=== PATIENT | male | born 1960 | race Caucasian/White ===

== ENCOUNTER 2017-02-02 06:36 | Day surgery (SDC) | payer OTHER ==
[~2017-02-02] VITALS: Ht 188 cm; Wt 134.0 kg
[~2017-02-02 06:36] MED LIST: ALBU6.7H INH; COUM5TAB PO; GABA400 PO; LISI40TA PO; OXYC5 PO; ROPI.5 PO; TAB-TAB PO
[2017-02-02] MEDS ORDERED: IOHEXOL 350 MG/ML 100 ML BTL (for Cath Lab) OTHER ONE (06:37)
[2017-02-02] MEDS ORDERED: NS 1000P @30 MLS/HR (KVO) IV SCH (07:30)
[2017-02-02 07:48] VITALS: BP 158/88; PULSE 59; RESP 18; TEMP 97.5; O2SAT 96
[2017-02-02] MEDS ORDERED: COUM5TAB PO (07:51)
[2017-02-02] MEDS ORDERED: TAMS5CAP PO (07:51)
[2017-02-02] MEDS ORDERED: FERR325T8 PO (07:51)
[2017-02-02] MEDS ORDERED: FENT25DI T-DERMAL (07:51)
[2017-02-02] MEDS ORDERED: OXYC30TA PO (07:51)
[2017-02-02] MEDS ORDERED: LEXA20TA PO (07:51)
[2017-02-02 08:09] LABS: AUTOMATED NEUTROPHIL # 2.2 TH/MM3 (1.8-7.7); BASOPHIL # 0.1 TH/MM3 (0-0.2); BASOPHIL % 1.2 % (0.0-2.0); EOSINOPHIL # 0.2 TH/MM3 (0-0.4); EOSINOPHIL % 3.9 % (0.0-4.0); HEMATOCRIT 41.5 % (39.0-51.0); HEMO FLAGS DIFF FINAL; LYMPH % 34.4 % (9.0-44.0); LYMPHOCYTE # 1.5 TH/MM3 (1.0-4.8); MEAN CELL VOLUME 91.2 FL (80.0-100.0); MEAN CORPUSCULAR HEMOGLOBIN 30.2 PG (27.0-34.0); MEAN CORPUSCULAR HGB CONC 33.1 % (32.0-36.0); MONO % 9.5 % (0.0-8.0); PLATELET COUNT 112 TH/MM3 (150-450); RED BLOOD COUNT 4.55 MIL/MM3 (4.50-5.90); RED CELL DISTRIBUTION WIDTH 15.7 % (11.6-17.2); WHITE BLOOD COUNT 4.3 TH/MM3 (4.0-11.0)
[2017-02-02 08:17] LABS: APTT (PATIENT) 27.3 SEC (24.3-30.1); INTERNATIONAL NORMALIZED RATIO 1.1 RATIO
[2017-02-02] MEDS ORDERED: HEPARIN-NS/PF INJ 1,000 ML ONE (08:26)
[2017-02-02] MEDS ORDERED: SODIUM CHLORID 0.9% 500 ML INJ 500 ML ONE (08:27)
[2017-02-02] MEDS ORDERED: MIDAZOLAM HCL 2 MG/2 ML VIAL ONE ×2 (08:27→09:02)
[2017-02-02] MEDS ORDERED: HEPARIN SODIUM - IV 10,000 UNITS/10 ML VIAL ONE (08:33)
[2017-02-02] MEDS ORDERED: PHENYLEPHRINE HCL 10 MG/ML VIAL ONE (08:34)
[2017-02-02] MEDS ORDERED: NITROGLYCERIN INJ 5 ML ONE (08:34)
[2017-02-02] MEDS ORDERED: VERAPAMIL HCL 5 MG/2 ML VIAL ONE (08:38)
--- NOTE | 2017-02-02 09:36 | CATHPROC ---
Audacious HIS Report Study Information Study Number Admission Scheduled Start Study Start [id number] Feb 02 2017 6:36AM 02/02/2017 Feb 02 2017 7:55AM Topping Service Cardiac Catheterization Admit Source Facility Department Other [facility] - Manager Educational Physician and Clinical Staff Initial Pranav Trejo Dye OperatorMikhail Blair RN Dye Operator Mariella Anderson,THOMAS Recorder Shayy Krishnan,MOLDING AND TRIM INSTALLER TECH2 Scrub Thao Mccrary,RT(R) Procedures Performed Procedure Location (Site) Vessel Name Coronary Angiograms LCA Left Coronary Coronary Angiograms RCA Right Coronary Equipment Time Nuts And Bolts Assembler Description Size Mfg Part Number Used/Scraped TRANSDUCER, TRUWAVE [id number] 07:57 SANDY DE [place] * Used W/STOCKCOCK *[id number] [id number] *[id number] [id number] *[id number] [id number] *[id number] 07:57 Fondu PACK, CCL CUSTOM * Used *[id number] 07:57 Fondu SUPPORT, ARTERIAL ADULT [id number] *[id number] Used 08:55 MEDTRONIC JR 4.0 DXTERITY CATHETER FR 5 [id number] Used BAND, RADIAL COMPRESSION TR [id number] 09:21 [employer] MEDICAL 29CM Used LARGE 29 *[id number] 07:57 [employer] MEDICAL WIRE, EXCHANGE 260CM 3MMJ 260CM Used *[id number] 07:57 NAMIC MANIFOLD, 4 PORT * Used *[id number] 07:57 NYCOMED OMNIPAQUE, 350 MG, 150ML 150ML [id number] Used [id number] 07:57 RIVERA MEDICAL BLANKET,WARM AIR CCL * Used *[id number] SHEATH, FR6 TRANSRADIAL [id number] 07:57 Yapmo FR 6 Used SLENDER 10CM *[id number] History: Current Medications Medication Dosage/Unit Route Frequency Last Date/Time Taken Coumadin LEXAPRO FLOMAX History: Allergies Allergy Reaction morphine Shortness of Breath History: Risk Factors Family History of Hypertension Previous RI Previous Heart Failure Premature CAD Yes Yes No No Prior Valve Prior PCI Prior CABG Surgery No No No Cerebrovascular Peripheral Artery Chronic Lung On Dialysis Diabetes Disease Disease Disease No Yes Yes Yes No History: Symptoms/Diagnosis Selection Items Chest pain SOB History: Stress Tests Stress or Imaging Studies Performed Yes Standard Exercise Stress Test No Stress Echo No Stress Test SPECT Stress Test SPECT Result Stress Test SPECT Ischemia Risk/Extent Yes Positive High Stress Test CMR No Cardiac CTA Coronary Calcium Score No No History: Other Disease Selection Items Hepatitis History: Other Current Smoker Method Packs a Day Years Used Pack Years Yes Cigarettes 1 20 20 Labs Hgb (g/dl) Hct (%) RBC (MIL/MM3) WBC (l/cumm) Platelets (thousands) 11.60-17.00 35.00-51.00 4.00-5.90 4.00-11.00 150.00-450.00 13.7 41.5 4.5 4.3 112 Glucose (mg/dl) BUN (mg/dl) Creatinine (mg/dl) BUN:Creatinine (1:x) 74.00-106.00 7.00-18.00 0.50-1.30 10.00-20.00 91 10 0.7 14.3 Na (meq/l) K (meq/l) Cl (meq/l) CO2 (mmol/L) Ca (mg/dl) 136.00-145.00 3.50-5.10 98.00-107.00 21.00-32.00 8.50-10.10 141 4 106 31 8.2 PT (sec) PTT (sec) INR (PTT:PT) 9.80-11.60 24.30-30.10 0.90-1.10 12 27.3 1.1 CPK-MB (ng/ML) 0.50-3.60 Not Drawn Medication Medication Total Dose (Bolus/Oral) Medication Total Dosage/Unit 1% XYLOCAINE 20 mL FENTANYL 100 mcg RADIAL COCKTAIL 5 mL (Bolus) VERSED 2 mg Medications (Bolus/Oral) Medication Time Given Dosage/Unit Administered By Reason VERSED 02/02/2017 8:40:58 AM 0.5 mg Mikhail Tenorio 0.5 mg VERSED given in lab by Mikhail Tenorio RN in Right Antecubital via Peripheral IV. Ordered by Pranav Perez. FENTANYL 02/02/2017 8:41:21 AM 25 mcg Mikhail Tenorio 25 mcg FENTANYL given in lab by Mikhail Tenorio, THOMAS in Right Antecubital via Peripheral IV. Ordered by Pranav Espinal. VERSED 02/02/2017 8:47:34 AM 0.5 mg Ferlitto, Mikhail 0.5 mg VERSED given in lab by Mikhail Tenorio RN in Right Antecubital via Peripheral IV. Ordered by Pranav Perez. 1% XYLOCAINE 02/02/2017 8:48:07 AM 20 mL Pranav Espinal 20 mL 1% XYLOCAINE given in lab by Pranav Espinal in Right Radial via Subcutaneous. Ordered by Pet Pranav camacho. FENTANYL 02/02/2017 8:48:12 AM 25 mcg Mikhail Tenorio 25 mcg FENTANYL given in lab by Mikhail Tenorio RN in Right Antecubital via Peripheral IV. Ordered by Pranav Espinal. RADIAL COCKTAIL 02/02/2017 8:53:02 AM 5 mL (Bolus) Pranav Espinal 5 mL (Bolus) RADIAL COCKTAIL given in lab by Pranav Espinal in Right Radial via Radial. Using [Iman ution Name]. Ordered by Pranav Espinal. Heparin 5600 U, 2.5mg Verapamil, 200mcg NTG VERSED 02/02/2017 9:02:35 AM 0.5 mg Mikhail Tenorio 0.5 mg VERSED given in lab by Mikhail Tenorio RN in Right Antecubital via Peripheral IV. Ordered by Pranav Perez. FENTANYL 02/02/2017 9:13:13 AM 50 mcg Mikhail Tenorio 50 mcg FENTANYL given in lab by Mikhail Tenorio RN in Right Antecubital via Peripheral IV. Ordered by Pranav Espinal. VERSED 02/02/2017 9:14:53 AM 0.5 mg Mikhail Tenorio 0.5 mg VERSED given in lab by Mikhail Tenorio RN in Right Antecubital via Peripheral IV. Ordered by Pranav Perez. Medication (Drip) Medication Time Given Dosage/Unit Concentration/Unit Diluent (ml) Solutio n IV Solutions 02/02/2017 8:22:35 AM 0 mL (IV) 500 NaCl .9 Patient arrived on IV Solutions in Right Antecubital via Peripheral IV. Pump/Drip Flow = 20 ml/hr usi ng NaCl .9. Initial Case Assessment Cardiovascular HR Rhythm NIBP Chest Pain 60 sr 140/84 0 Circulatory - Right Pulses Dorsalis Pedis Femoral Radial 2 2 3 Scale (0,1,2,3,4,d) Scale (0,1,2,3,4,d) Neurological State Oriented to time-place- Alert Moves all extremities person Respiration - General Respiration Rate SpO2 (%) (B/min) 12 96 Final Case Assessment Cardiovascular HR Rhythm NIBP Chest Pain 63 sr 139/74 0 Circulatory - Right Pulses Dorsalis Pedis Femoral Radial 2 2 3 Scale (0,1,2,3,4,d) Scale (0,1,2,3,4,d) Neurological State Oriented to time-place- Alert Moves all extremities person Respiration - General Respiration Rate SpO2 (%) (B/min) 13 95 Chronological Log Time Study Chronological Log 8:22:06 Patient arrived via Bed. 8:22:07 Patient Name, D.O.B, / Armband Verified By R.N. 8:22:08 Consent signed by the physician and the patient and verified by the Manager Educational staff. 8:22:09 Pre-op and post- op instructions given; patient acknowledges understanding of instructions. 8:22:10 Verbal Stimulation=2 Physical Stimulation=2 Airway=2 Respiration=2 TOTAL=8. (0=absent, 1=li mited, 2=present) 8:22:24 Presedation assessment performed by Manager Educational RN. 8:22:27 Allens test performed on the right radial and ulnar artery. 8:22:29 Patient has been NPO for More than 6Hrs. 8:22:30 Skin Breakdown-scab noted to left upper foot 8:22:31 Agustina Prominences Protected 8:22:34 A # 20 IV was noted in the Antecubital (right). Grade = patent 8:22:35 Patient arrived on IV Solutions in Right Antecubital via Peripheral IV. Pump/Drip Flow = 20 ml/hr using NaCl .9. 8:22:36 History and physical on the chart or being dictated. Vitals capture started with the following parameters, Patient=Adult, Interval=5 min, Initial Pre lmnhq=003 mmHg, 8:30:03 Deflation Rate=5 mmHg, Cuff placed on Left Ankle 8:30:44 HR=61 bpm, VUZZ=397/84 mmhg, SpO2=94.0 %, Resp=11 B/min, Pain=0, Deepti=10, Gutiérrez=2 Assessment: Initial Case, HR=60 BPM, Rhythm=sr, UWBJ=806/84 mmhg, Chest Pain=0 Right Pulses: Talha Ped=2, Femoral=2, Radial=3 8:34:03 Neurological: State=Alert, Ox3, HAWKINS Respiration: Resp=12 B/min, SpO2=96 % 8:35:45 HR=59 bpm, VXXA=319/79 mmhg, SpO2=94.0 %, Resp=15 B/min, Deepti=10 8:36:47 Right groin and right wrist prepped with 2% chlorhexidine, and draped after a 3 min. waiting time. 8:37:12 Reference ECG taken 8:40:44 HR=61 bpm, IHAK=357/85 mmhg, SpO2=96.0 %, Resp=14 B/min 8:40:58 0.5 mg VERSED given in lab by Mikhail Tenorio, THOMAS in Right Antecubital via Peripheral IV. Ord ered by Pranav Espinal. 25 mcg FENTANYL given in lab by Mikhail Tenorio RN in Right Antecubital via Peripheral IV. Order ed by Teddy, 8:41:21 Pranav. 8:44:31 Pressure channel 1 zeroed. 8:44:43 MD arrived. Time Out. Correct patient, correct procedure,correct physician, power injector not used, surgica l team present. Time 8:44:49 Out Concurred by MD, and individual staff in procedure 8:45:48 HR=60 bpm, UQSI=233/81 mmhg, SpO2=97 %, Resp=20 B/min 8:47:34 0.5 mg VERSED given in lab by Mikhail Tenorio, THOMAS in Right Antecubital via Peripheral IV. Ord ered by Pranav Espinal. 8:48:06 Case Start 20 mL 1% XYLOCAINE given in lab by Pranav Espinal in Right Radial via Subcutaneous. Ordered mirna Espinal, 8:48:07 Pranav. 25 mcg FENTANYL given in lab by Mikhail Tenorio, THOMAS in Right Antecubital via Peripheral IV. Order ed by Teddy, 8:48:12 Pranav. 8:50:47 HR=67 bpm, FXQC=065/87 mmhg, SpO2=96.0 %, Resp=20 B/min 8:52:39 Access site was Radial Artery. A SHEATH, FR6 TRANSRADIAL SLENDER 10CM FR 6 was advanced into the Radial (right) using the Luís santos 8:52:47 technique. 5 mL (Bolus) RADIAL COCKTAIL given in lab by Pranav Espinal in Right Radial via Radial. Using [Solution Name]. 8:53:02 Ordered by Pranav Espinal. Heparin 5600 U, 2.5mg Verapamil, 200mcg NTG A JR 4.0 DXTERITY CATHETER FR 5 was advanced over a wire. OMNIPAQUE, 350 MG, 150ML 150ML was use d for 8:54:46 injections. 8:55:44 HR=76 bpm, NBXS=223/69 mmhg, SpO2=94.0 %, Resp=12 B/min Recorded Pressure: LV, HR=72, Condition=Condition 1 8:56:17 (Left Ventricle) LV 117/2/9 Recorded Pressure: LV, Ao, HR=69, Condition=Condition 1 8:56:35 (Left Ventricle) LV 110/2/6, (Aorta) Ao 109/70/90 8:59:46 Catheter was removed over wire A JL 3.5 INFINITI CATHETER FR 5 was advanced over a wire. OMNIPAQUE, 350 MG, 150ML 150ML was use d for 9:00:29 injections. 9:00:47 HR=66 bpm, FKHT=202/72 mmhg, SpO2=94 %, Resp=14 B/min 9:02:35 0.5 mg VERSED given in lab by Mikhail Tenorio, RN in Right Antecubital via Peripheral IV. Or dered by Pranav Espinal. 9:03:00 The LCA was injected and visualized at various angles. OMNIPAQUE, 350 MG, 150ML 150ML used . 9:05:46 HR=70 bpm, UCBD=228/79 mmhg, SpO2=94.0 %, Resp=15 B/min After removing the current catheter a AL 1 INFINITI CATHETER FR 5 was advanced over a WIRE, EXC HANGE 260CM 9:06:07 3MMJ 260CM. 9:10:47 HR=71 bpm, MCPS=524/72 mmhg, SpO2=94.0 %, Resp=16 B/min 9:11:59 The RCA was injected and visualized at various angles. OMNIPAQUE, 350 MG, 150ML 150ML used . After removing the current catheter a MPA-2 INFINITI CATHETER FR 5 was advanced over a WIRE, EX CHANGE 260CM 9:12:49 3MMJ 260CM. 50 mcg FENTANYL given in lab by Mikhail Tenorio, RN in Right Antecubital via Peripheral IV. Orde red by Teddy 9:13:13 Pranav. 9:14:53 0.5 mg VERSED given in lab by Mikhail Tenorio, THOMAS in Right Antecubital via Peripheral IV. Or dered by Pranav Espinal. 9:15:48 HR=65 bpm, BAVY=311/77 mmhg, SpO2=96.0 %, Resp=18 B/min 9:19:09 The RCA was injected and visualized at various angles. OMNIPAQUE, 350 MG, 150ML 150ML used . 9:20:51 HR=69 bpm, EKSO=175/74 mmhg, SpO2=95.0 %, Resp=17 B/min 9:21:05 Catheter was removed Radial Compression Device Used. 10 mLs of air placed in BAND, RADIAL COMPRESSION TR LARGE 29 29 CM. Affected 9:23:16 hand 95 % O2 saturation. 9:23:41 Case End 9:23:47 No case complications noted. 9:23:48 Cine recording checked. Assessment: Final Case, HR=63 BPM, Rhythm=sr, LCVP=005/74 mmhg, Chest Pain=0 Right Pulses: Talha Ped=2, Femoral=2, Radial=3 9:23:56 Neurological: State=Alert, Ox3, HAWKINS Respiration: Resp=13 B/min, SpO2=95 % 9:25:48 HR=66 bpm, QWRC=557/82 mmhg, SpO2=95.0 %, Resp=10 B/min 9:29:28 Patient moved to stretcher 9:30:19 Vitals capture stopped. 9:30:49 Patient transported to DOCU 9:32:51 Bedside Report will be given. End Study - Contrast Media Used In Study Contrast Total Opened (mL) Total Used (mL) Total Wasted (mL) Omnipaque 100 100 0 End Study - Maximum Contrast Load Max Contrast Load (mL) 957.1 End Study - Radiation Exposure Fluoro Time (minutes) 12.4 End Study - Sheaths Sheaths Pulled By Sheath Hold Time (min) Pranav Espinal End Study - Patient Disposition Complications Transferred To Interventional Outcome No Telemetry Bed No attempt made
[2017-02-02] MEDS ORDERED: ESCITALOPRAM OXALATE 20 MG TAB PO SCH ×2 (11:15→12:00)
[2017-02-02] MEDS ORDERED: NON-FORMULARY DRUG (Oxycodone 30 MG) PO PRN (12:00)
[2017-02-02] MEDS ORDERED: MISC INFORMATION XX ONE (12:00)
--- NOTE | 2017-02-02 14:41 | EKG ---
Date Performed: 02/02/2017 Time Performed: 07:58:52 PTAGE: 56 years EKG: Sinus bradycardia Septal T wave changes are nonspecific Borderline ECG PREVIOUS TRACING : 01/01/2015 08.15 Compared to the previous tracing septal T wave changes pres ent DOCTOR: Amauri Marsh Interpretating Date/Time 02/02/2017 14:40:42
--- NOTE | 2017-02-02 20:30 | MA ---
cc: PRANAV HASTINGS DO DATE: February 02, 2017 PROCEDURE Left heart catheterization, coronary angiogram. Moderate sedation: 45 minutes PREPROCEDURE DIAGNOSIS Chest pain, shortness of breath, abnormal stress test. POSTPROCEDURE DIAGNOSIS Mild coronary artery disease. MEDICATIONS 1. Versed 2 milligrams. 2. Fentanyl 100 mcg. 3. Verapamil 2.5 milligrams. 4. Nitro 200 mcg. 5. Heparin 5600 units. CONTRAST USED 100 cc FLUOROSCOPY 12.4 minutes Moderate sedation: 45 minutes. ESTIMATED BLOOD LOSS 10 cc PROCEDURAL SUMMARY Cory Gonzalez is a pleasant 56-year-old male who underwent stress testing in my office and was found to have an abnormal stress test with apical ischemia as well as an elevated TID. Because of this he was recommended cardiac catheterization. Risks, benefits and alternatives were explained to him and he consented as such. He was brought to lab and prepped in the usual sterile fashion. Right radial artery was accessed using a modified Seldinger technique and placement of a 5/6 Serbian sheath. This was easily aspirated and flushed. A JR-4 was advanced over a J-wire to the ascending aorta and across the aortic valve for measurement of left ventricular pressure. This was pulled back across the aortic valve showing no significant gradient of aortic stenosis. JR-4 was unable to cannulate the right coronary artery so it was exchanged out for a JL-3.5 which was used for selective angiography of the left coronary system. JL-3.5 was exchanged out for an AL-1 and eventually a multipurpose catheter for selective angiography of the right coronary artery. Multipurpose catheter was removed over a J-wire. Radial band was placed over the arteriotomy site for hemostasis. 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 FINDINGS Left main: Normal size vessel with adequate reflux. Overall short in nature. No disease noted. LAD: Normal-size vessel with mild luminal irregularities throughout the proximal portion. Distally tapers down but no significant disease. It gives off two major diagonals with the first one being a large diagonal which covers part of the lateral wall. The second one is somewhat smaller but no significant disease in either. Left circumflex: Overall small vessel providing one really small obtuse marginal. Mild luminal irregularities throughout. RCA normal-size vessel and dominant by nature. It has a high anterior takeoff. There is mild luminal irregularities but no significant disease. LVEDP: Six. IMPRESSION 1. Mild coronary artery disease by cardiac catheterization. 2. Abnormal stress test which appears to be a false positive. 3. Shortness of breath possibly secondary to his previous pulmonary embolus. RECOMMENDATIONS 1. Mr. Gonzalez has mild coronary artery disease by cardiac catheterization. We will continue medical management. 2. I will check his office records. He may need an echo if not done recently to look at his overall left ventricular function but also possible pulmonary hypertension. 3. I ask that he restart his Coumadin and follow up with his primary care physician for further recommendations on his INR. Thank you for allowing me to see Cory Gonzalez. If there are any questions, please do not hesitate to call. Pranav Hastings DO VGP/LESLI /5:37 PM /8:08 PM
[2017-02-02] MEDS ORDERED: TAMSULOSIN HCL 0.4 MG CAP PO SCH (21:00)
== END 2017-02-02 12:50 | disposition home or self-care (01) ==
LOC: HDIC 06:36 → HCAT 06:36
PROVIDERS: ATTEND Nuclear Medicine Nuclear Cardiology
DX: I25.10 Atherosclerotic heart disease of native coronary artery without angina pectoris (principal); Z79.01 Long term (current) use of anticoagulants
CPT/HCPCS: 80048; 85025; 85610; 85730; 93005; 93454; C1769; C1893; J1644; J2250; J2370; J3010; J7040; Q9967

== ENCOUNTER 2017-12-24 15:41 | Observation (INO) ==
[2017-12-24 17:08] LABS: Baso # (Auto) 0.1 th/mm3 (0.0-0.2); Baso % (Auto) 0.8 % (0.0-2.0); Eos # (Auto) 0.1 th/mm3 (0.0-0.4); Eos % (Auto) 2.3 % (0.0-4.0); Hematocrit 37.6 % (39.0-51.0); Hemoglobin 12.1 gm/dL (13.0-17.0); Lymph # (Auto) 1.3 th/mm3 (1.0-4.8); Lymph % (Auto) 20.1 % (9.0-44.0); Mean Corpuscular HGB Conc 32.2 % (32.0-36.0); Mean Corpuscular Hemoglobin 27.5 pg (27.0-34.0); Mean Corpuscular Volume 85.5 fL (80.0-100.0); Mean Platelet Volume 8.3 fL (7.0-11.0); Mono # (Auto) 0.5 th/mm3 (0.0-0.9); Mono % (Auto) 8.2 % (0.0-8.0); Neut # (Auto) 4.3 th/mm3 (1.8-7.7); Neut % (Auto) 68.6 % (16.0-70.0); Platelet Count 169 th/mm3 (150-450); Red Cell Distribution Width 14.7 % (11.6-17.2); White Blood Count 6.3 th/mm3 (4.0-11.0)
[2017-12-24 17:14] LABS: Chloride 107 meq/L (98-107); Potassium 3.8 meq/L (3.5-5.1); Sodium 141 meq/L (136-145)
[2017-12-24 17:17] LABS: Albumin 2.6 g/dL (3.4-5.0); Anion Gap 5 meq/L (5-15); Calcium 7.5 mg/dL (8.5-10.1); Carbon Dioxide 29.2 meq/L (21.0-32.0); Glucose,Random 109 mg/dL (74-106)
[2017-12-24 17:18] LABS: Blood Urea Nitrogen 4 mg/dL (7-18)
[2017-12-24 17:20] LABS: Alanine Aminotransferase 28 U/L (12-78)
[2017-12-24 17:21] LABS: Aspartate Aminotransferase 23 U/L (15-37); Glomerular Filtration Rate Greater Than 89 mL/min (>89)
[2017-12-24 17:22] LABS: Total Protein 6.2 g/dL (6.4-8.2)
[2017-12-24 17:23] LABS: Alkaline Phosphatase 130 U/L (45-117)
[2017-12-24 17:24] LABS: Activated Partial Thrombo Time 48.9 sec (24.3-30.1); Prothrombin Time 62.8 sec (9.8-11.6)
--- NOTE | 2017-12-24 17:25 | US ---
EXAM DATE: 12/24/2017 5:20 PM EDT AGE/SEX: 57 years / Male INDICATIONS: Pain and palpable vein in the posterior thigh. CLINICAL DATA: This is the patient's initial encounter. Patient reports that signs and symptoms have been present for 4 - 6 days and indicates a pain score of 6/10. MEDICAL/SURGICAL HISTORY: Deep venous thrombosis. Hypercholesterolemia. Hypertension. Pulmon rosy embolism. None. COMPARISON: [facility], US LEG BILATERAL VENOUS DOPPLER, 03/13/2017. . TECHNIQUE: Venous ultrasound of both lower extremities was performed from the inguinal ligament to t he proximal calf. Real-time, color Doppler and spectral tracing, compression and augmentation techni ques were used. FINDINGS: The deep venous system from the inguinal region the popliteal is compressible and there is augmentation of flow to distal compression. No echogenic thrombus seen within the lumen. Focused sca nning of the palpable area in the posterior thigh was also performed and there is an oval hypoechoic nonshadowing subcutaneous structure which measures 1 x 4 cm size and is noncompressible. There is no flow seen by color Doppler. This suggests the possibility of a thrombosed superficial vein. CONCLUSION: 1. No evidence of deep venous thrombosis. 2. Probable thrombosed superficial vein in the posterior thigh. Electronically signed by: Jerad Lee MD 12/24/2017 5:23 PM EDT
[2017-12-24 17:31] LABS: Creatine Kinase 79 U/L (39-308)
[2017-12-24 17:32] LABS: D-Dimer 1.23 mg/L FEU (0.00-0.50)
[2017-12-24 17:37] LABS: INR 6.3 Ratio
--- NOTE | 2017-12-24 18:20 | ED ---
HPI General Chief complaint: Shortness of Breath/Dyspnea Stated complaint: Bilateral feet and leg swelling History of Present Illness HPI narrative: 57-year-old male here for evaluation of shortness of breath. Patient has a history of PE, DVT, on Coumadin since 2002, he states he sometimes forms blood clots even when on Coumadin. He stays in the shortness of breath started yesterday, at rest, felt like if he had a PE like last time. Patient denies any fevers chills, no chest pain, no cough, no other complaints. Related Data Home Medications Medication Instructions Recorded Confirmed Unknown 12/24/17 lisinopril 20 mg PO DAILY 12/24/17 12/24/17 oxycodone 30 mg PO QID 12/24/17 12/24/17 oxycodone [OxyContin] 80 mg PO TID 12/24/17 12/24/17 warfarin [Coumadin] 5 mg PO DAILY 12/24/17 12/24/17 Allergies Allergy/AdvReac Type Severity Reaction Status Date / Time morphine AdvReac Severe Shortness Unverified 12/24/17 15:44 of Breath Review of Systems ROS: all other systems reviewed are negative [facility] Medical History Medical History DVT (deep venous thrombosis) (Acute) Hyperlipidemia (Acute) Hypertension (Acute) Pulmonary emboli (Acute) Social History Social History Substance History: No History of Abuse Smoking Status: Current every day smoker Tobacco Type: Cigarettes How Often Do You Have a Drink Containing Alcohol: Never Recent Travel in [facility] within the Last 8 Weeks: No Recent Out of Country Travel within the Last 8 Weeks: No Immunization History Tetanus Immunization: Unsure Exam Narrative Exam Narrative: GENERAL: Alert oriented 3 no acute distress. SKIN: Focused skin assessment warm/dry. HEAD: Atraumatic. Normocephalic. EYES: Pupils equal and round. No scleral icterus. No injection or drainage. ENT: No nasal bleeding or discharge. Mucous membranes pink and moist. NECK: Trachea midline. No JVD. CARDIOVASCULAR: Regular rate and rhythm. No murmur appreciated. RESPIRATORY: No accessory muscle use. Clear to auscultation. Breath sounds equal bilaterally. GASTROINTESTINAL: Abdomen soft, non-tender, nondistended. Hepatic and splenic margins not palpable. MUSCULOSKELETAL: No obvious deformities. No clubbing. No cyanosis. No edema. NEUROLOGICAL: Awake and alert. No obvious cranial nerve deficits. Motor grossly within normal limits. Normal speech. PSYCHIATRIC: Appropriate mood and affect; insight and judgment normal. Course Initial Documented Vital Signs Temperature 98.2 F 12/24/17 15:44 Pulse Rate 97 H 12/24/17 15:44 Respiratory Rate 20 12/24/17 15:44 Blood Pressure 175/86 H 12/24/17 15:44 Pulse Oximetry 97 12/24/17 15:44 Last Documented Vital Signs Temperature 98.2 F 12/24/17 15:44 Pulse Rate 97 H 12/24/17 15:44 Respiratory Rate 20 12/24/17 15:44 Blood Pressure 175/86 H 12/24/17 15:44 Pulse Oximetry 97 12/24/17 15:44 Medical Decision Making MDM Narrative Medical decision making narrative: 57-year-old male here for evaluation of shortness of breath. INR is elevated, ultrasound of the left lower extremities negative. I ordered a CTA to rule out any new PE meanwhile he has a supratherapeutic INR and will be admitted for that. If the CTA is positive then may be patient will need to be switched to different anticoagulant. Meanwhile I spoke with Dr. Ulloa who will follow up on the CTA and manage the patient accordingly. Medical Screen Exam Complete: Yes Emergency Medical Condition: Yes Lab Data Result diagrams: 12/24/17 16:45 12/24/17 16:45 Lab Results 12/24/17 12/24/17 12/24/17 Range/Units 16:45 16:45 16:45 CBC w Diff Auto diff final WBC 6.3 (4.0-11.0) th/mm3 RBC 4.40 L (4.50-5.90) mil/mm3 Hgb 12.1 L (13.0-17.0) gm/dL Hct 37.6 L (39.0-51.0) % MCV 85.5 (80.0-100.0) fL MCH 27.5 (27.0-34.0) pg MCHC 32.2 (32.0-36.0) % RDW 14.7 (11.6-17.2) % Plt Count 169 (150-450) th/mm3 MPV 8.3 (7.0-11.0) fL Neut % (Auto) 68.6 (16.0-70.0) % Lymph % (Auto) 20.1 (9.0-44.0) % [place] % (Auto) 8.2 H (0.0-8.0) % Eos % (Auto) 2.3 (0.0-4.0) % Baso % (Auto) 0.8 (0.0-2.0) % Neut # (Auto) 4.3 (1.8-7.7) th/mm3 Lymph # (Auto) 1.3 (1.0-4.8) th/mm3 [place] # (Auto) 0.5 (0.0-0.9) th/mm3 Eos # (Auto) 0.1 (0.0-0.4) th/mm3 Baso # (Auto) 0.1 (0.0-0.2) th/mm3 WBC Differential . Differential Comment . PT 62.8 H (9.8-11.6) sec INR 6.3 H* Ratio APTT 48.9 H (24.3-30.1) sec D-Dimer Quant (PE/DVT) 1.23 H (0.00-0.50) mg/L FEU Sodium 141 (136-145) meq/L Potassium 3.8 (3.5-5.1) meq/L Chloride 107 (98-107) meq/L Carbon Dioxide 29.2 (21.0-32.0) meq/L Anion Gap 5 (5-15) meq/L BUN 4 L (7-18) mg/dL Creatinine 0.58 L (0.60-1.30) mg/dL Estimated GFR Greater than 89 (>89) mL/min Random Glucose 109 H (74-106) mg/dL Calcium 7.5 L (8.5-10.1) mg/dL Total Bilirubin 0.3 (0.2-1.0) mg/dL AST 23 (15-37) U/L ALT 28 (12-78) U/L Alkaline Phosphatase 130 H (45-117) U/L Total Creatine Kinase 79 (39-308) U/L Troponin I Less than 0.02 L (0.02-0.05) ng/mL Total Protein 6.2 L (6.4-8.2) g/dL Albumin 2.6 L (3.4-5.0) g/dL Imaging Data Radiologist's impression: Venous Doppler Study 12/24/17 16:16 CONCLUSION: 1. No evidence of deep venous thrombosis. 2. Probable thrombosed superficial vein in the posterior thigh. Discharge Plan Discharge Disposition Patient Disposition: 30 Still Patient Discharge Condition Condition: Stable Discharge Details Diagnosis: Supratherapeutic INR Physicians Team ED Provider: Binh Cobb Primary Care Provider: Juan Miller V Attending Provider: Henry Ulloa ED Status: Admitted Observation Patient
--- NOTE | 2017-12-24 19:10 | CT ---
EXAM DATE: 12/24/2017 7:02 PM EDT AGE/SEX: 57 years / Male INDICATIONS: Shortness of breath; evaluate for embolism. CLINICAL DATA: This is the patient's initial encounter. Patient reports that signs and symptoms have been present for 2 days and indicates a pain score of 0/10. MEDICAL/SURGICAL HISTORY: Deep venous thrombosis. Hypertension. Pulmonary embolism. None. RADIATION DOSE: 21.78 CTDI (mGy) COMPARISON: No prior exams available for comparison. TECHNIQUE: Volumetric scanning was performed using a multi-row detector CT scanner during bolus infu toni of 74 ml Omnipaque 350 (iohexol) nonionic water-soluble contrast as a single exam dose. The betsy a was post processed with a variety of visualization algorithms including full volume maximum intensi ty projection and sliding thin slab reformation. Using automated exposure control and adjustment of t he mA and/or kV according to patient size, radiation dose was kept as low as reasonably achievable to obtain optimal diagnostic quality images. DICOM format image data is available electronically for r eview and comparison. FINDINGS: Pulmonary Arteries: No filling defects are seen in the pulmonary arteries out to the subsegmental ve ssels. The left and right pulmonary arteries are normal in diameter. Lung: No infiltrates seen. Effusion: None. Mediastinum: No evidence of mediastinal or hilar adenopathy. Other: Moderate size hiatus hernia. CONCLUSION: 1. The study is negative for pulmonary embolism. Electronically signed by: Jerad Lee MD 12/24/2017 7:09 PM EDT
[2017-12-24] MEDS: oxyCODONE/Acetaminophen 10/325 Tablet PO PRN (19:59)
[2017-12-24] MEDS ORDERED: Acetaminophen 325 MG Tablet PO PRN (20:58)
[2017-12-25] MEDS: oxyCODONE/Acetaminophen 10/325 Tablet PO PRN (00:23)
[2017-12-25] MEDS ORDERED: oxyCODONE HCL 80 MG Controlled Release Tablet PO SCH (01:15)
[2017-12-25] MEDS ORDERED: oxyCODONE HCL 20 MG Controlled Release Tablet PO SCH (01:30)
[2017-12-25] MEDS: oxyCODONE HCL 20 MG Controlled Release Tablet PO SCH ×3 (01:34→19:45)
[2017-12-25 06:37] LABS: Baso # (Auto) 0.1 th/mm3 (0.0-0.2); Baso % (Auto) 0.8 % (0.0-2.0); Eos # (Auto) 0.2 th/mm3 (0.0-0.4); Eos % (Auto) 3.7 % (0.0-4.0); Hematocrit 37.9 % (39.0-51.0); Hemoglobin 12.3 gm/dL (13.0-17.0); Lymph # (Auto) 1.9 th/mm3 (1.0-4.8); Lymph % (Auto) 30.2 % (9.0-44.0); Mean Corpuscular HGB Conc 32.4 % (32.0-36.0); Mean Corpuscular Hemoglobin 27.4 pg (27.0-34.0); Mean Corpuscular Volume 84.6 fL (80.0-100.0); Mean Platelet Volume 8.1 fL (7.0-11.0); Mono # (Auto) 0.5 th/mm3 (0.0-0.9); Mono % (Auto) 8.6 % (0.0-8.0); Neut # (Auto) 3.6 th/mm3 (1.8-7.7); Neut % (Auto) 56.7 % (16.0-70.0); Platelet Count 166 th/mm3 (150-450); Red Blood Count 4.48 mil/mm3 (4.50-5.90); Red Cell Distribution Width 14.8 % (11.6-17.2); White Blood Count 6.3 th/mm3 (4.0-11.0)
[2017-12-25 06:46] LABS: Chloride 108 meq/L (98-107); INR 5.4 Ratio; Potassium 3.7 meq/L (3.5-5.1); Prothrombin Time 54.1 sec (9.8-11.6); Sodium 142 meq/L (136-145)
[2017-12-25 06:51] LABS: Anion Gap 4 meq/L (5-15); Calcium 7.8 mg/dL (8.5-10.1); Carbon Dioxide 29.9 meq/L (21.0-32.0); Glucose,Random 87 mg/dL (74-106)
[2017-12-25 06:52] LABS: Blood Urea Nitrogen 6 mg/dL (7-18)
[2017-12-25 06:55] LABS: Glomerular Filtration Rate Greater Than 89 mL/min (>89)
[2017-12-25] MEDS: Lisinopril 20 MG Tablet PO SCH (08:27)
[2017-12-25] MEDS: Finasteride 5 MG Tablet PO SCH (08:27)
--- NOTE | 2017-12-25 12:35 | P.HP ---
History of Present Illness Primary Care Physician: Juan Miller MD History of Present Illness: 57-year-old male with a history of DVT and peripheral artery disease presents to the ER complaining of leg pain and shortness of breath. He states that all of this started approximately 1 week ago when she had fairly severe pain in his left calf and felt a palpable cord running from his calf upwards towards his groin. The only way he could be comfortable was to sit up in a recliner, which disturbs his sleep. This went on for a few days and by last Tuesday he developed shortness of breath and chest pain overnight. He decided to come in for evaluation 1 day later. 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 In the ER he was found to be supratherapeutic on his INR. He takes Coumadin for previous DVT in the right leg which caused a pulmonary embolism many years ago. CTA thorax performed in the ER showed no evidence of pulmonary emboli. He denies any nausea vomiting or diarrhea. He denies any focal weakness, visual changes, slurring of speech. Review of Systems All other systems reviewed negative except as stated in HPI PMFSH - History History Provided By: Patient - Medical History Medical History: Medical History (Last Updated 12/24/17 @ 18:40 by Tamiko Anton RN) Pulmonary emboli (Acute) DVT (deep venous thrombosis) (Acute) Hyperlipidemia (Acute) Hypertension (Acute) - Surgical History Surgical History: Surgical History (Last Updated 12/25/17 @ 12:28 by Henry Ulloa MD) H/O vascular surgery - Family History Family History: Family History (Last Updated 12/25/17 @ 12:27 by Henry Ulloa MD) Other Hypertension Peripheral artery disease - Tobacco History Second Hand Smoke Exposure: No Tobacco Use In Past 30 Days: Yes Smoking Status: Current every day smoker Tobacco Type: Cigarettes - Alcohol History How Often Do You Have a Drink Containing Alcohol: Never - Substance Use History Substance History: No History of Abuse - Travel History Recent Travel in the [place] Within the Last 8 Weeks: No Recent Travel Out of the Country Within the Last 8 Weeks: No - Immunization History Tetanus Immunization: Unsure Medications and Allergies Active Medications: Active Medications Acetaminophen (Tylenol) 650 mg PO Q4H PRN PRN Reason: Temp > 100.4 Finasteride (Proscar) 5 mg PO DAILY [facility] Last Admin: 12/25/17 08:27 Dose: 5 mg Lisinopril (Prinivil) 20 mg PO DAILY [facility] Last Admin: 12/25/17 08:27 Dose: 20 mg Ondansetron HCl (Zofran Inj) 4 mg IV.PUSH Q6H PRN PRN Reason: NAUSEA OR VOMITING Oxycodone HCl (Roxicodone) 30 mg PO QID [facility] Last Admin: 12/25/17 08:27 Dose: 30 mg Oxycodone HCl (Oxycontin Cr) 80 mg PO Q8H [facility] Last Admin: 12/25/17 09:58 Dose: 80 mg Oxycodone/Acetaminophen (Percocet 10/325 Mg) 1 tab PO Q4H PRN PRN Reason: pain 6-10 Last Admin: 12/25/17 00:23 Dose: 1 tab Pantoprazole Sodium (Protonix) 40 mg PO AC BREAKFAST [facility] Last Admin: 12/25/17 08:27 Dose: 40 mg Allergies Allergy/AdvReac Type Severity Reaction Status Date / Time morphine AdvReac Severe Shortness Unverified 12/24/17 15:44 of Breath Home Medications Medication Instructions Recorded Confirmed Type lisinopril 20 mg PO DAILY 12/24/17 12/24/17 History oxycodone 30 mg PO QID 12/24/17 12/24/17 History oxycodone [OxyContin] 80 mg PO TID 12/24/17 12/24/17 History warfarin [Coumadin] 5 mg PO DAILY 12/24/17 12/24/17 History finasteride 5 mg PO DAILY 12/25/17 12/25/17 History pantoprazole 40 mg PO AC BREAKFAST 12/25/17 12/25/17 History Exam Vital signs: Vital Signs 12/24/17 15:44 12/24/17 20:49 12/24/17 22:00 Temperature 98.2 F 98.1 F Pulse Rate 97 H 96 H 84 Respiratory Rate 20 20 Blood Pressure 175/86 H 137/97 H Pulse Oximetry 97 97 12/25/17 00:00 12/25/17 04:00 12/25/17 08:00 Temperature 97.8 F 97.1 F L 96.8 F L Pulse Rate 78 88 81 Respiratory Rate 20 20 18 Blood Pressure 158/84 H 138/86 160/74 H Pulse Oximetry 97 97 96 12/25/17 11:51 Temperature 97.9 F Pulse Rate 86 Respiratory Rate 18 Blood Pressure 164/74 H Pulse Oximetry 97 Intake & Output 12/24/17 12/25/17 12/25/17 18:59 06:59 18:59 Intake Total 720 / 720 Balance 720 / 720 Weight 130.8 kg 130.9 kg Intake: Oral 720 / 720 Other: # Voids 3 Weight On Admission 131 kg Narrative: GENERAL: AAOx3, no acute distress, obesity SKIN: Warm and dry, pedraza discoloration of bilateral lower extremities from chronic venous stasis HEAD: Atraumatic. Normocephalic. Bandage on left cheek, neck during shaving EYES: Pupils equal, round, reactive to light. No scleral icterus. No injection or drainage. ENT: No nasal bleeding or discharge. Moist mucous membranes. Nonerythematous oropharynx. NECK: Trachea midline. No JVD. Thyroid size within normal limits. CARDIOVASCULAR: Regular rate and rhythm. No murmur, no gallops, no rubs. RESPIRATORY: Anterior congestion with scant wheezes, bilateral bases are clear. No accessory muscle use. GASTROINTESTINAL: Abdomen soft, non-tender, nondistended, normal active bowel sounds. Hepatic and splenic margins not palpable. MUSCULOSKELETAL: Extremities without clubbing or cyanosis. No obvious deformities. EXTREMITIES: Palpable cords starting in left calf and running two thirds of the way medial thigh towards groin, trace edema in bilateral lower extremities NEUROLOGICAL: Awake and alert. No obvious cranial nerve deficits. Motor grossly within normal limits. No focal deficits. Five out of 5 muscle strength in the arms and legs. Normal speech. PSYCHIATRIC: Appropriate mood and affect; insight and judgment normal. Results - Labs CBC & Chem 7: 12/25/17 06:05 12/25/17 06:05 Labs: Laboratory Results - last 24 hr 12/24/17 12/24/17 12/24/17 16:45 16:45 16:45 CBC w Diff Auto diff final WBC 6.3 RBC 4.40 L Hgb 12.1 L Hct 37.6 L MCV 85.5 MCH 27.5 MCHC 32.2 RDW 14.7 Plt Count 169 MPV 8.3 Neut % (Auto) 68.6 Lymph % (Auto) 20.1 King % (Auto) 8.2 H Eos % (Auto) 2.3 Baso % (Auto) 0.8 Neut # (Auto) 4.3 Lymph # (Auto) 1.3 King # (Auto) 0.5 Eos # (Auto) 0.1 Baso # (Auto) 0.1 WBC Differential . Differential Comment . PT 62.8 H INR 6.3 H* APTT 48.9 H D-Dimer Quant (PE/DVT) 1.23 H Sodium 141 Potassium 3.8 Chloride 107 Carbon Dioxide 29.2 Anion Gap 5 BUN 4 L Creatinine 0.58 L Estimated GFR Greater than 89 Random Glucose 109 H Calcium 7.5 L Total Bilirubin 0.3 AST 23 ALT 28 Alkaline Phosphatase 130 H Total Creatine Kinase 79 Troponin I Less than 0.02 L Total Protein 6.2 L Albumin 2.6 L 12/25/17 12/25/17 12/25/17 06:05 06:05 06:05 CBC w Diff Auto diff final WBC 6.3 RBC 4.48 L Hgb 12.3 L Hct 37.9 L MCV 84.6 MCH 27.4 MCHC 32.4 RDW 14.8 Plt Count 166 MPV 8.1 Neut % (Auto) 56.7 Lymph % (Auto) 30.2 King % (Auto) 8.6 H Eos % (Auto) 3.7 Baso % (Auto) 0.8 Neut # (Auto) 3.6 Lymph # (Auto) 1.9 King # (Auto) 0.5 Eos # (Auto) 0.2 Baso # (Auto) 0.1 WBC Differential . Differential Comment . PT 54.1 H INR 5.4 APTT D-Dimer Quant (PE/DVT) Sodium 142 Potassium 3.7 Chloride 108 H Carbon Dioxide 29.9 Anion Gap 4 L BUN 6 L Creatinine 0.45 L Estimated GFR Greater than 89 Random Glucose 87 Calcium 7.8 L Total Bilirubin AST ALT Alkaline Phosphatase Total Creatine Kinase Troponin I Total Protein Albumin - Imaging Impressions Venous Doppler Study 12/24/17 16:16 CONCLUSION: 1. No evidence of deep venous thrombosis. 2. Probable thrombosed superficial vein in the posterior thigh. Chest CTA 12/24/17 18:15 CONCLUSION: 1. The study is negative for pulmonary embolism. Caprini VTE Risk Assessment Caprini VTE Risk Assessment: Moderate/High Risk (score >= 2) Caprini Risk Assessment Model: Point Value = 1 Point Value = 2 Point Value = 3 Point Value = 5 Age 41-60 Minor surgery BMI > 25 kg/m2 Swollen legs Varicose veins or History of unexplained or recurrent spontaneous Oral contraceptives or hormone replacement Sepsis (< 1 month) Serious lung disease, including pneumonia (< 1 month) Abnormal pulmonary function Acute myocardial infarction Congestive heart failure (< 1 month) History of inflammatory bowel disease Medical patient at bed rest Age 61-74 Arthroscopic surgery Major open surgery (> 45 min) Laparoscopic surgery (> 45 min) Malignancy Confined to bed (> 72 hours) Immobilizing plaster cast Central venous access Age >= 75 History of VTE Family history of VTE Factor V Leiden Prothrombin [id number] Lupus anticoagulant Anticardiolipin antibodies Elevated serum homocysteine Heparin-induced thrombocytopenia Other congenital or acquired thrombophilia Stroke (< 1 month) Elective arthroplasty Hip, pelvis, or leg fracture Acute spinal cord injury (< 1 month) Prophylaxis Regimen: Total Risk Factor Score Risk Level Prophylaxis Regimen 0-1 Low Early ambulation 2 Moderate Order ONE of the following: *Sequential Compression Device (SCD) *Heparin 5000 units SQ BID 3-4 Higher Order ONE of the following medications: *Heparin 5000 units SQ TID *Enoxaparin/Lovenox 40 mg SQ daily (WT < 150 kg, CrCl > 30 mL/min) *Enoxaparin/Lovenox 30 mg SQ daily (WT < 150 kg, CrCl > 10-29 mL/min) *Enoxaparin/Lovenox 30 mg SQ BID (WT < 150 kg, CrCl > 30 mL/min) AND/OR *Sequential Compression Device (SCD) 5 or more Highest Order ONE of the following medications: *Heparin 5000 units SQ TID (Preferred with Epidurals) *Enoxaparin/Lovenox 40 mg SQ daily (WT < 150 kg, CrCl > 30 mL/min) *Enoxaparin/Lovenox 30 mg SQ daily (WT < 150 kg, CrCl > 10-29 mL/min) *Enoxaparin/Lovenox 30 mg SQ BID (WT < 150 kg, CrCl > 30 mL/min) AND *Sequential Compression Device (SCD) Assessment and Plan - Plan Superficial thrombus versus DVT Patient has had clots forming in the presence of Coumadin Obtain Doppler study of bilateral lower extremities Consider changing Coumadin to a different anticoagulant prior to discharge Consider bridging onto heparin or Lovenox once INR is below therapeutic again Patient has a history of severe PAD Shortness of breath with bronchitis Patient has anterior wheezes which are scant but complains of shortness of breath He had a negative heart cath performed less than a year ago which essentially rules out cardiac causes We will give him a Z-Jan and breathing treatments as needed, single dose of steroids Supratherapeutic INR 6.4 on admission now 5.4 following single dose of po vitamin K in the ER Continue holding Coumadin Follow lower extremity Doppler study results DVT prophylaxis Coumadin, supratherapeutic INR
--- NOTE | 2017-12-25 14:36 | P.DCO ---
- Home Health Nursing Order: Medical education, Signs/symptoms of disease process, Nursing assessment with vital signs Instructions: PT/INR daily for 3 days, then PT/INR 3 times weekly for a week, then PT/INR weekly for 3 weeks. Results to go to Dr Juan Miller - Certification I have seen patient Cory Gonzalez on 12/25/17. My clinical findings support the need for the requested home health care services because: Medication compliance is questionable I certify that my clinical findings support that this patient is homebound because: Unable to use public transportation
[2017-12-25] MEDS: Azithromycin 250 MG Tablet PO SCH (15:07)
--- NOTE | 2017-12-25 16:02 | ECG ---
Date Performed: 12/24/2017 Time Performed: 15:55:19 PTAGE: 57 years EKG: Sinus rhythm NORMAL ECG Since PREVIOUS TRACING , no significant change noted PREVIOUS TRACIN03/12/2017 22.35 DOCTOR: Nicola Benson Interpretating Date/Time 12/25/2017 16:02:05
[2017-12-26] MEDS: oxyCODONE HCL 20 MG Controlled Release Tablet PO SCH ×2 (03:42→11:36)
[2017-12-26 06:24] LABS: Chloride 106 meq/L (98-107); Potassium 4.1 meq/L (3.5-5.1); Sodium 139 meq/L (136-145)
[2017-12-26 06:26] LABS: INR 3.3 Ratio; Prothrombin Time 33.1 sec (9.8-11.6)
[2017-12-26 06:28] LABS: Anion Gap 3 meq/L (5-15); Blood Urea Nitrogen 7 mg/dL (7-18); Calcium 7.8 mg/dL (8.5-10.1); Carbon Dioxide 29.9 meq/L (21.0-32.0); Glucose,Random 108 mg/dL (74-106)
[2017-12-26 06:32] LABS: Glomerular Filtration Rate Greater Than 89 mL/min (>89)
[2017-12-26 08:15] VITALS: BP 178/79; PULSE 91; RESP 18; TEMP 97.7; O2SAT 96
[2017-12-26] MEDS: Finasteride 5 MG Tablet PO SCH (08:26)
[2017-12-26] MEDS: Lisinopril 20 MG Tablet PO SCH (08:26)
[2017-12-26] MEDS: Azithromycin 250 MG Tablet PO SCH (08:27)
--- NOTE | 2017-12-26 11:19 | P.PN ---
Subjective Interval history: Follow-up left leg pain. Patient states he has had 2 episodes of right lower extremity DVT on therapeutic Coumadin. I believe patient is a Coumadin failure recommending switching to Doacs will discuss with PCP. No shortness of breath. He also has peripheral arterial disease status post evaluation by vascular surgery. Physical Exam Vital signs: Vital Signs 12/25/17 11:51 12/25/17 15:53 12/25/17 20:00 Temperature 97.9 F 98.1 F 98.1 F Pulse Rate 86 92 H 93 H Respiratory Rate 18 18 20 Blood Pressure 164/74 H 138/73 137/77 Pulse Oximetry 97 95 94 L 12/26/17 00:00 12/26/17 04:00 12/26/17 08:00 Temperature 97.8 F 97.1 F L 97.7 F Pulse Rate 101 H 93 H 91 H Respiratory Rate 18 Blood Pressure 159/84 H 121/58 L 178/79 H Pulse Oximetry 96 95 96 Intake & Output 12/25/17 12/26/17 12/26/17 18:59 06:59 18:59 Intake Total 940 / 940 480 / 480 Balance 940 / 940 480 / 480 Weight 131 kg Intake: Oral 940 / 940 480 / 480 Other: # Voids 1 4 # Bowel Movements 1 Narrative: GENERAL: AAOx3, no acute distress, obesity SKIN: Warm and dry, pedraza discoloration of bilateral lower extremities from chronic venous stasis CARDIOVASCULAR: Regular rate and rhythm. No murmur, no gallops, no rubs. RESPIRATORY: Anterior congestion with scant wheezes, bilateral bases are clear. No accessory muscle use. GASTROINTESTINAL: Abdomen soft, non-tender, nondistended, normal active bowel sounds. MUSCULOSKELETAL: Extremities without clubbing or cyanosis. No obvious deformities. EXTREMITIES: Palpable cords starting in left calf and running two thirds of the way medial thigh towards groin, trace edema in bilateral lower extremities NEUROLOGICAL: Awake and alert. No obvious cranial nerve deficits. Motor grossly within normal limits. No focal deficits. Five out of 5 muscle strength in the arms and legs. Normal speech. Results - Labs CBC & Chem 7: 12/25/17 06:05 12/26/17 05:40 Laboratory Results - last 24 hr 12/26/17 12/26/17 05:40 05:40 PT 33.1 H D INR 3.3 Sodium 139 Potassium 4.1 Chloride 106 Carbon Dioxide 29.9 Anion Gap 3 L BUN 7 Creatinine 0.57 L Estimated GFR Greater than 89 Random Glucose 108 H Calcium 7.8 L - Imaging ITS Impressions Venous Doppler Study 12/24/17 16:16 CONCLUSION: 1. No evidence of deep venous thrombosis. 2. Probable thrombosed superficial vein in the posterior thigh. Chest CTA 12/24/17 18:15 CONCLUSION: 1. The study is negative for pulmonary embolism. - Procedures none Assessment and Plan - Assessment (1) Supratherapeutic INR Code(s): R79.1 - Abnormal coagulation profile Status: Acute (2) DVT (deep venous thrombosis) Code(s): I82.409 - Acute embolism and thrombosis of unspecified deep veins of unspecified lower extremity Status: Acute - Plan Superficial thrombus Patient has had clots forming in the presence of Coumadin Recommend changing Coumadin to a different anticoagulant prior to discharge awaiting discussion with patient's PCP. Will start when INR is less than 2 currently it is 3.3. Will have outpatient daily PT/INR until subtherapeutic Patient has a history of severe PAD, follow-up with vascular surgery Shortness of breath with bronchitis He had a negative heart cath performed less than a year ago which essentially rules out cardiac causes Improved continue Z-Jan and breathing treatments as needed, status post single dose of steroids Supratherapeutic INR 6.4 on admission now 3.3 following single dose of po vitamin K in the ER Continue holding Coumadin DVT prophylaxis Coumadin, supratherapeutic INR Discharge Planning: Stable for discharge
--- NOTE | 2017-12-26 16:25 | P.DS ---
Date of admission: 12/24/17 18:22 Primary care physician: Juan Miller MD Brief History from admission: 57-year-old male with a history of DVT and peripheral artery disease presents to the ER complaining of leg pain and shortness of breath. He states that all of this started approximately 1 week ago when she had fairly severe pain in his left calf and felt a palpable cord running from his calf upwards towards his groin. The only way he could be comfortable was to sit up in a recliner, which disturbs his sleep. This went on for a few days and by last Tuesday he developed shortness of breath and chest pain overnight. He decided to come in for evaluation 1 day later. 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 In the ER he was found to be supratherapeutic on his INR. He takes Coumadin for previous DVT in the right leg which caused a pulmonary embolism many years ago. CTA thorax performed in the ER showed no evidence of pulmonary emboli. He denies any nausea vomiting or diarrhea. He denies any focal weakness, visual changes, slurring of speech. DS: Diagnosis - Discharge Diagnosis (1) Supratherapeutic INR Status: Acute (2) DVT (deep venous thrombosis) Status: Acute DS: Medications - Discharge Medications Prescriptions: albuterol sulfate [Ventolin HFA] 2 puff INH Q6H PRN #1 g PRN Reason: Shortness Of Breath azithromycin 250 mg PO DAILY #3 tab lisinopril 20 mg PO BID #60 tab rivaroxaban [Xarelto] 20 mg PO DAILY #30 tab DS: Summary Hospital Course: Superficial thrombus Patient has had clots forming in the presence of Coumadin Recommend changing Coumadin to Xarelto discussed with patient's PCP. Will start when INR is less than 2 currently it is 3.3. Will have outpatient daily PT/INR until subtherapeutic Patient has a history of severe PAD, follow-up with vascular surgery Shortness of breath with bronchitis He had a negative heart cath performed less than a year ago which essentially rules out cardiac causes Improved continue Z-Jan and breathing treatments as needed, status post single dose of steroids Supratherapeutic INR 6.4 on admission now 3.3 following single dose of po vitamin K in the ER Continue holding Coumadin DVT prophylaxis Coumadin, supratherapeutic INR - Time Spent with Patient Total time spent providing and/or coordinating discharge services: Greater than 30 minutes - Quality: VTE Deep Vein Thrombosis/Pulmonary Embolism Present on Admission: No Exam Vital signs: Vital Signs 12/25/17 20:00 12/26/17 00:00 12/26/17 04:00 Temperature 98.1 F 97.8 F 97.1 F L Pulse Rate 93 H 101 H 93 H Respiratory Rate 20 20 20 Blood Pressure 137/77 159/84 H 121/58 L Pulse Oximetry 94 L 96 95 12/26/17 08:00 Temperature 97.7 F Pulse Rate 91 H Respiratory Rate 18 Blood Pressure 178/79 H Pulse Oximetry 96 Intake & Output 12/25/17 12/26/17 12/26/17 18:59 06:59 18:59 Intake Total 940 / 940 480 / 480 Balance 940 / 940 480 / 480 Weight 131 kg Intake: Oral 940 / 940 480 / 480 Other: # Voids 1 4 # Bowel Movements 1 Narrative: GENERAL: AAOx3, no acute distress, obesity SKIN: Warm and dry, pedraza discoloration of bilateral lower extremities from chronic venous stasis CARDIOVASCULAR: Regular rate and rhythm. No murmur, no gallops, no rubs. RESPIRATORY: Anterior congestion with scant wheezes, bilateral bases are clear. No accessory muscle use. GASTROINTESTINAL: Abdomen soft, non-tender, nondistended, normal active bowel sounds. MUSCULOSKELETAL: Extremities without clubbing or cyanosis. No obvious deformities. EXTREMITIES: Palpable cords starting in left calf and running two thirds of the way medial thigh towards groin, trace edema in bilateral lower extremities NEUROLOGICAL: Awake and alert. No obvious cranial nerve deficits. Motor grossly within normal limits. No focal deficits. Five out of 5 muscle strength in the arms and legs. Normal speech. Results Procedures completed during hospitalization: none Labs on day of discharge: Labs from last 24 hours 12/26/17 12/26/17 05:40 05:40 PT 33.1 H D INR 3.3 Sodium 139 Potassium 4.1 Chloride 106 Carbon Dioxide 29.9 Anion Gap 3 L BUN 7 Creatinine 0.57 L Estimated GFR Greater than 89 Random Glucose 108 H Calcium 7.8 L - Impressions ITS Impressions Venous Doppler Study 12/24/17 16:16 CONCLUSION: 1. No evidence of deep venous thrombosis. 2. Probable thrombosed superficial vein in the posterior thigh. Chest CTA 12/24/17 18:15 CONCLUSION: 1. The study is negative for pulmonary embolism. Discharge Plan - Discharge Disposition Patient Disposition: 01 Discharge Home - Discharge Condition Condition: Stable - Discharge Order Discharge Orders: Discharge Order (Routine); Ordered 12/26/17 Ordered By: Setw Sotelo - Physicians Team Primary Care Provider: Juan Miller V Attending Provider: Stew Sotelo Other Providers: Aileen Gallagher
[2017-12-26] MEDS ORDERED: Lisinopril 20 MG Tablet PO SCH (21:00)
== END 2017-12-26 12:27 | disposition home or self-care (01) ==
LOC: PH3 15:41 → PHEDA 15:41 → PHED 15:41 → PH3 20:31
PROVIDERS: ADMIT Internal Medicine; ATTEND Internal Medicine